=== PATIENT | female | born 1955 | race Caucasian/White ===

== ENCOUNTER 2018-10-29 06:54 | Day surgery (SDC) | payer MEDICARE, OTHER, SELFPAY ==
[2018-10-29] VITALS (8 sets, daily range): BP systolic 78–103; BP diastolic 54–66; PULSE 51–59; RESP 7–16; TEMP 36.3–36.8; O2SAT 96–100; BMI 15.8
[2018-10-29] MEDS: SODIUM CHLORIDE 0.9% 1,000 ML 84 ML IV ×3 (07:35→08:56)
--- NOTE | 2018-10-29 07:47 | PM.HP.1 ---
History of Present Illness Chief complaint: [id number] SCREENING COLONOSCOPY Narrative: 63-year-old woman presents today for screening colonoscopy. She is generally feeling well without bowel complaints. Last colonoscopy 10 years ago in 2008. no polyps. No family history of colon or rectal cancer. Her father has a history of UC. Patient History Medical History (Updated 10/29/18 @ 07:54 by Slim Alcaraz MD) Post-menopausal (Acute) Surgical History (Updated 10/29/18 @ 07:52 by Slim Alcaraz MD) H/O shoulder surgery (Acute) Inguinal hernia (Acute) Social History household members: spouse Family & Social History Social History: household members spouse Lives locally with Don Hirsch Tobacco & Substance use: never smoker, 1/2 drink daily Meds Home Medications Medication Instructions Recorded Confirmed Type estradiol [Vagifem] 10 mcg VG SEE INSTRUCTIONS #24 tab 10/25/16 10/29/18 Rx [CS-Estriol 0.5mg/gm] 1 dose VAGINAL 2-3 PER WK 10/29/18 10/29/18 History acyclovir 400 mg PO BID PRN 10/29/18 10/29/18 History Allergies Allergy/AdvReac Type Severity Reaction Status Date / Time Sulfa (Sulfonamide Allergy Unknown Nausea Verified 10/29/18 07:12 Antibiotics) codeine AdvReac Unknown black Verified 10/29/18 07:12 out, dizziness Review of Systems Constitutional Constitutional: Denies fever(s) Eyes Eyes: Denies bulging eyes ENT Ears, Nose, Mouth, and Throat: No lip swelling Cardiovascular Cardiovascular: Denies generalize swelling Respiratory Respiratory: Denies stridor Gastrointestinal Gastrointestinal: Denies coffee ground emesis Musculoskeletal Musculoskeletal: Denies loss of height Integumentary/Breasts Skin/Breast: Denies wounds Neurologic Neurologic: Denies abnormal speech and Denies confusion Psychiatric Psychiatric: Denies confusion Endocrine Endocrine: Denies deepening of the voice Hematologic/Lymphatic Hematologic/Lymphatic: Denies lymphadenopathy Allergic/Immunologic Allergic/Immunologic: Denies lip swelling Exam Vital Signs (past 8 hours): - 10/29/18 07:22 Temperature 98.2 F Pulse Rate 56 L Respiratory Rate 15 Blood Pressure 103/64 Pulse Oximetry 100 Oxygen Delivery Method Room Air Const General: cooperative and healthy appearing Orientation: alert HENMT Head: normal to inspection Nose: nares normal Mouth: oral mucosae normal and lip normal Eyes Eyelids: eyelids normal Conjunctivae: conjunctivae normal Sclera: sclerae normal Neck Neck: supple and other (No thyromegally) Chest Chest: other (LCTAB , regular respiratory effort) Cardio Rhythm: regular rhythm Heart Sounds: S1 normal, S2 normal, no gallops, no murmurs and no rubs GI Other: abd scafoid, soft, non tender non distended Skin General: no rashes or lesions noted Neuro General: alert and awake Psych Appearance: grossly normal Affect: normal affect Assessment & Plan (1) Encounter for screening colonoscopy: Current visit: Yes Status: Acute Assessment & Plan narrative: 63 yo woman Present for Q10yr screening colo
[2018-10-29] MEDS: MIDAZOLAM 5 MG/5 ML VIAL IV (08:03)
[2018-10-29] MEDS: fentaNYL 250 MCG/5 ML INJ IV (08:03)
--- NOTE | 2018-10-29 09:22 | P.OP.ENDO_ITS ---
Operative Date/Time/Diagnoses Date of procedure: 10/29/18 Time of procedure: 09:00 Pre-op diagnosis: Colorectal cancer screening Post-op diagnosis: same Procedure & Clinicians Study performed: Complete colonoscopy Same procedure as scheduled: Yes Indications: Colorectal cancer screening Surgeon: Slim Alcaraz Procedure Notes SCOAP/Timeout: Completed Procedure in detail: Patient was brought to the endoscopy suite, a time-out was completed. She was lightly sedated with 1 mg of midazolam and 50 of fentanyl. Perirectal exam was performed on visual inspection there was no abnormalities to the anal derm. Digital rectal exam revealed no abnormalities 160 cm colonoscope was inserted through the anus and the rectum was insufflated and scope was easily passed through the rectum there was a large quite redundant sigmoid colon of the sigmoid descending colon junction was encountered and a large loop that had developed in the sigmoid colon was reduced. Then proceeded to advance the scope up the left colon and through the splenic flexure without difficulty. Again the transverse colon was fairly redundant requiring manual pressure to assist in scope advancement. After several attempts the hepatic flexure was negotiated without difficulty. advancing the scope down the right colon however was difficult with the redundant transverse and sigmoid colon manual pressure was held on the abdomen in both these locations which in addition to using a scope stiffener helped considerably.. There were several attempts made to reduce the loop in these structures ultimately successful in the cecum was reached. There was a notable ileocecal valve and the [place] foot of the tenia was clearly seen. The scope was then removed slowly in a circumferential fashion inspecting the colonic wall. The mucosa appeared to be uniformly healthy other no polyps detected. Within the sigmoid colon there was a paucity perhaps 3 or so diverticula ostia detected. None inflamed. The scope was retroflexed in the distal rectum with no lesions detected. Sedation minutes: 40 Findings: diverticulosis Specimen(s): none sent Complications: none Impression: Grossly normal colon, no malignant or premalignant lesions identified, very few diverticula Recommendations: Colonscopy in 10 years Plan for aftercare: To PACU and home Follow up: as needed Disposition: PACU
--- NOTE | 2018-10-29 09:22 | SUR.PHASEI ---
BP low, treated with fluids, pt slow to wake up.
--- NOTE | 2018-10-29 09:55 | SUR.PHASEII ---
Shana started, evelin barr applied, pt in Phase 2, brought in, d/c instructions discussed, both voiced an understanding. Waiting for IV fluids to complete and pt to be more awake. Pt's at bedside, call light in reach, bed is low and locked.
--- NOTE | 2018-10-29 10:29 | SUR.PHASEII ---
Pt ready to go, dressed with assist of . Left when ready and left in stable condition.
== END 2018-10-29 10:30 | disposition home or self-care (01) ==
PROVIDERS: PCP Family Medicine; Visit Provider Surgery
PROC: 0DJD8ZZ Inspection of Lower Intestinal Tract, Via Natural or Artificial Opening Endoscopic (ICD-10-PCS; CPT 45378; principal; 2018-10-29 07:45)
DX: Z12.11 Encounter for screening for malignant neoplasm of colon (principal); K57.30 Diverticulosis of large intestine without perforation or abscess without bleeding
CPT/HCPCS: G0121; 99152; 99153; J2250; J3010